=== PATIENT | male | born 1970 | race African-American/Black ===

== ENCOUNTER 2017-05-09 09:21 | Emergency (ER) | payer SELFPAY ==
[2017-05-09] MEDS ORDERED: Ketorolac Tromethamine 60 MG/2 ML VIAL ONE (10:09)
== END 2017-05-09 10:45 | disposition home or self-care (01) ==
LOC: ERS 09:21
DX: K02.9 Dental caries, unspecified (principal); E03.9 Hypothyroidism, unspecified; E78.5 Hyperlipidemia, unspecified; F17.210 Nicotine dependence, cigarettes, uncomplicated
CPT/HCPCS: 96372; J1885

== ENCOUNTER 2017-07-17 13:17 | Emergency (ER) | payer SELFPAY ==
[2017-07-17] MEDS ORDERED: Ketorolac Tromethamine 30 MG/ML VIAL ONE (14:14)
[2017-07-17 14:35] LABS: Bilirubin Negative (Negative); Blood, Urine Negative (Negative); Clarity CLEAR (Clear); Glucose, Urine (Dipstick) Negative (Negative); Leukocyte Negative (Negative); Nitrite Negative (Negative); Protein, Urine (Dipstick) Negative (Neg-Trace); Specific Gravity, Urine 1.007 (1.002-1.036); Urobilinogen 0.2 mg/dL (0.2-1.0); pH, Urine 6.5 (5.0-9.0)
--- NOTE | 2017-07-17 16:05 | RAD ---
LUMBAR SPINE THREE VIEWS: History: Low back pain. FINDINGS: There are five lumbar type vertebrae. Pedicles are intact. Vertebral body height and alignment are ma intained. No acute fracture or dislocation are apparent. Left hip prosthesis is partially visualized. IMPRESSION: No acute osseous abnormalities are demonstrated. POS: [facility]
== END 2017-07-17 15:10 | disposition home or self-care (01) ==
LOC: ERS 13:17
DX: M54.5 Low back pain (principal); E03.9 Hypothyroidism, unspecified; I10 Essential (primary) hypertension; F17.210 Nicotine dependence, cigarettes, uncomplicated; X50.1XXA Overexertion from prolonged static or awkward postures, initial encounter
CPT/HCPCS: 72100; 81003; 96372; 99406; J1885